=== PATIENT | male | born 1965 | race Caucasian/White ===

== ENCOUNTER 2022-01-10 22:34 | Emergency (ER) | payer BC ==
[2022-01-10 23:27] LABS: BLOOD UREA NITROGEN,BUN 13 mg/dL (7.0-18.0); CHLORIDE,CL 103 mmol/L (98-107); GLUCOSE RANDOM 132 mg/dL (74-106); POTASSIUM,K 3.7 mmol/L (3.5-5.1); SODIUM,NA 142 mmol/L (136-148)
[2022-01-10] MEDS ORDERED: Lidocaine 2% Viscous Solution 15 ML UD PO ONE (23:40)
[2022-01-10] MEDS ORDERED: amLODIPine 5 MG Tab PO ONE (23:40)
[2022-01-11 00:20] VITALS: BP 218/135; PULSE 96
== END 2022-01-11 00:39 | disposition home or self-care (01) ==
LOC: MW.ED 22:34
DX: R04.0 Epistaxis (principal); I10 Essential (primary) hypertension; Z79.899 Other long term (current) drug therapy; Z88.8 Allergy status to other drugs, medicaments and biological substances
CPT/HCPCS: 30903; 36415; 80053; 85025; 85610; 85730; 99283; A9270; 30901

== ENCOUNTER 2022-01-11 04:36 | Emergency (ER) | payer BC ==
[2022-01-11 05:09] VITALS: BP 172/103; PULSE 102
== END 2022-01-11 05:16 | disposition home or self-care (01) ==
LOC: MW.ED 04:36
DX: R04.0 Epistaxis (principal); I10 Essential (primary) hypertension
CPT/HCPCS: 30903; 99283-25

== ENCOUNTER 2022-01-26 22:27 | Emergency (ER) | payer BC ==
[2022-01-26] MEDS ORDERED: Sodium Chloride 0.9% 2.5 ML Syringe FLUSH PRN (22:28)
[2022-01-26] MEDS ORDERED: Sodium Chloride 0.9% 10 ML Syringe FLUSH PRN (22:28)
[2022-01-26] MEDS ORDERED: Adenosine 6 MG/2 ML SDV ONE (22:40)
[2022-01-26] MEDS ORDERED: Adenosine 6 MG/2 ML SDV IVPUSH ONE (22:55)
[2022-01-26 23:21] LABS: CARBON DIOXIDE,CO2 28.4 mmol/L (21.0-32.0); POTASSIUM,K 3.4 mmol/L (3.5-5.1)
[2022-01-26] MEDS ORDERED: Potassium Chloride 20 MEQ Tab.ER PO ONE (23:53)
[2022-01-27 05:33] VITALS: BP 137/83; PULSE 107
== END 2022-01-27 01:10 | disposition home or self-care (01) ==
LOC: MW.ED 22:27
DX: I47.1 Supraventricular tachycardia (principal); E87.6 Hypokalemia; I10 Essential (primary) hypertension; Z87.891 Personal history of nicotine dependence
CPT/HCPCS: 36415; 71045; 80053; 83735; 85025; 93005; 96374; 99285; A9270; J0153; 93010; 99284

== ENCOUNTER 2022-02-02 21:08 | Emergency (ER) | payer BC ==
[2022-02-02] MEDS: Diltiazem 50 MG/10 ML SDV IVPUSH ONE (21:47)
[2022-02-02] MEDS: Sodium Chloride 0.9% 10 ML Syringe FLUSH PRN (21:47)
[2022-02-02] MEDS: Sodium Chloride 0.9% 2.5 ML Syringe FLUSH PRN (21:47)
[2022-02-02 22:03] LABS: CARBON DIOXIDE,CO2 26.4 mmol/L (21.0-32.0); POTASSIUM,K 4.1 mmol/L (3.5-5.1)
[2022-02-03 00:13] VITALS: BP 128/79; PULSE 93
== END 2022-02-03 00:13 | disposition home or self-care (01) ==
LOC: MW.ED 21:08
DX: R00.2 Palpitations (principal); R00.0 Tachycardia, unspecified; I10 Essential (primary) hypertension
CPT/HCPCS: 36415; 71045; 71045-26; 80053; 83880; 84484; 85025; 93005; 96374; 99285-25; J3490

== ENCOUNTER 2022-07-24 18:28 | Emergency (ER) | payer BC ==
[2022-07-24] MEDS ORDERED: Sodium Chloride 0.9% 2.5 ML Syringe FLUSH PRN (20:16)
[2022-07-24] MEDS ORDERED: Adenosine 6 MG/2 ML SDV ONE ×2 (20:16→20:17)
[2022-07-24] MEDS ORDERED: Sodium Chloride 0.9% 10 ML Syringe FLUSH PRN (20:16)
[2022-07-24] MEDS ORDERED: Adenosine 6 MG/2 ML SDV IVPUSH ONE (20:18)
[2022-07-24 20:50] LABS: CARBON DIOXIDE,CO2 26.1 mmol/L (21.0-32.0); POTASSIUM,K 4.4 mmol/L (3.5-5.1)
[2022-07-24] MEDS ORDERED: Sodium Chloride 0.9% 500 ML IV SCH ×2 (21:00→21:30)
[2022-07-24 22:03] VITALS: BP 124/90; PULSE 95
== END 2022-07-24 22:32 | disposition home or self-care (01) ==
LOC: MW.ED 18:28
DX: I47.1 Supraventricular tachycardia (principal); I10 Essential (primary) hypertension
CPT/HCPCS: 36415; 80053; 80305; 84443; 84484; 85025; 93005; 96361; 96374; 99284; J0153; J3490; J7040

== ENCOUNTER 2022-12-08 10:35 | Day surgery (SDC) | payer BC ==
[~2022-12-08 10:35] MED LIST: Lactated Ringers 1,000 ML IV SCH
[2022-12-08] MEDS ORDERED: Propofol 200 MG/20 ML SDV ONE ×2 (11:15→12:39)
[2022-12-08 13:13] VITALS: BP 165/88; PULSE 82
== END 2022-12-08 13:20 | disposition home or self-care (01) ==
LOC: MW.SDS 10:35
PROVIDERS: ATTEND Surgery
DX: Z12.11 Encounter for screening for malignant neoplasm of colon (principal); D12.6 Benign neoplasm of colon, unspecified; D12.8 Benign neoplasm of rectum; K57.30 Diverticulosis of large intestine without perforation or abscess without bleeding; J44.9 Chronic obstructive pulmonary disease, unspecified; E78.5 Hyperlipidemia, unspecified; F41.9 Anxiety disorder, unspecified; I10 Essential (primary) hypertension; E11.9 Type 2 diabetes mellitus without complications; F17.210 Nicotine dependence, cigarettes, uncomplicated; Z79.84 Long term (current) use of oral hypoglycemic drugs; Z79.899 Other long term (current) drug therapy
CPT/HCPCS: 45380; 45385; J2704; J7120; 00811

== ENCOUNTER 2025-01-06 20:23 | Emergency (ER) | payer BC ==
[2025-01-06] MEDS: Lactated Ringers 1,000 ML IV SCH (21:41)
[2025-01-06] MEDS: hydrALAZINE 20 MG/ML SDV IVPUSH ONE (21:41)
[2025-01-06 21:56] LABS: BASOPHILS ABSOLUTE AUTO 0.13 K/uL (0.00-0.20); EOSINOPHILS ABSOLUTE AUTO 0.38 K/uL (0.00-0.45); HEMATOCRIT 49.4 % (42.0-52.0); HEMOGLOBIN 16.3 g/dL (14.0-18.0); IMMATURE GRAN ABSOLUTE AUTO 0.04 K/uL (0.00-0.05); IMMATURE GRAN PERCENT AUTO 0.3 % (0.0-0.4); LYMPHOCYTES PERCENT AUTO 31.8 % (24.0-44.0); MEAN CORPUSCULAR HEMOGLOBIN 28.2 pg (28.0-32.0); MEAN CORPUSCULAR VOLUME 85.6 fL (83.0-99.0); MEAN PLATELET VOLUME 8.9 fL (9.4-12.4); MONOCYTES PERCENT AUTO 6.4 % (0.0-8.0); NEUTROPHILS ABSOLUTE AUTO 7.23 K/uL (1.80-7.70); NEUTROPHILS PERCENT AUTO 57.5 % (41.0-71.0); PLATELET COUNT,PLT 281 K/uL (150-400); RED BLOOD CELL COUNT 5.77 M/uL (4.52-5.90); WHITE BLOOD CELL COUNT,WBC 12.58 K/uL (3.9-11.3)
[2025-01-06 22:23] LABS: A/G RATIO 1.1 (0.9-1.6); ALANINE AMINOTRANSFERASE,ALT 32 IU/L (14-63); ALKALINE PHOSPHATASE 116 U/L (46-116); ASPARTATE AMNIOTRANSFERASE,AST 15 IU/L (15-37); BILIRUBIN TOTAL 0.3 mg/dL (0.2-1.0); BLOOD UREA NITROGEN,BUN 17 mg/dL (7.0-18.0); CALCIUM 9.1 mg/dL (8.5-10.1); CARBON DIOXIDE,CO2 28.9 mmol/L (21.0-32.0); CHLORIDE,CL 103 mmol/L (98-107); CREATININE 1.3 mg/dL (0.8-1.3); GLUCOSE RANDOM 133 mg/dL (74-106); POTASSIUM,K 3.9 mmol/L (3.5-5.1); PRO B-TYPE NATRIUR PEPT,BNPPRO 17 pg/mL (0-125); PROTEIN TOTAL,TP 7.7 g/dL (6.4-8.2); SODIUM,NA 140 mmol/L (136-148)
[2025-01-06 22:24] LABS: ESTIMATED GFR 63 mL/min (>60)
[2025-01-07 00:54] VITALS: BP 141/95; PULSE 79
== END 2025-01-07 00:54 | disposition home or self-care (01) ==
LOC: MW.ED 20:23
DX: I16.0 Hypertensive urgency (principal); I10 Essential (primary) hypertension; Z75.3 Unavailability and inaccessibility of health-care facilities; Z91.011 Allergy to milk products; E78.00 Pure hypercholesterolemia, unspecified; E11.9 Type 2 diabetes mellitus without complications; Z79.84 Long term (current) use of oral hypoglycemic drugs; Z79.899 Other long term (current) drug therapy
CPT/HCPCS: 36415; 71045; 80053; 83880; 84484; 85025; 85379; 93005; 96361; 96374; 99285; J0360; J7120; 93010; 99283